=== PATIENT | female | born 1950 | race Caucasian/White ===

== ENCOUNTER 2017-08-10 22:27 | Emergency (ER) | payer BC, OTHER ==
[~2017-08-10] VITALS: Ht 165.1 cm; Wt 64.5 kg
[~2017-08-10 22:27] MED LIST: ALPH0.15 EACH EYE; AZOP1SUS EACH EYE; CALC500T42 PO; LEVO.025 PO; PROB1TAB PO; SERT-132 PO; SIMV40 PO; TAB-TAB PO
[2017-08-10 22:41] VITALS: BP 192/86; PULSE 111; RESP 20; TEMP 97.9; O2SAT 99
[2017-08-11] MEDS ORDERED: LEVO50TA4 PO (00:03)
[2017-08-11] MEDS ORDERED: SACC1CAP3 PO (00:03)
[2017-08-11] MEDS ORDERED: SIMV40TA PO (00:03)
[2017-08-11] MEDS ORDERED: CALC1TAB12 PO (00:03)
[2017-08-11] MEDS ORDERED: CURCPOW PO (00:06)
--- NOTE | 2017-08-11 00:06 | PD ---
HPI Chief Complaint: Nosebleed Time Seen by Provider: 23:59 Travel History International Travel<30 days: No Contact w/Intl Traveler<30days: No Traveled to known affect area: No History of Present Illness HPI 66-year-old female arrives with epistaxis from the left naris for about 2 hours. Symptoms resolved spontaneously just prior to the time of ER evaluation. She denies trauma. No diaphoresis tachycardia headache dizziness. No sore prior episodes. No anticoagulation. PFSH Past Medical History Cancer: No Cardiovascular Problems: No Endocrine: Yes Genitourinary: No Hepatitis: No Hiatal Hernia: No Immune Disorder: No Musculoskeletal: No Neurologic: No Psychiatric: No Reproductive: No Respiratory: No Thyroid Disease: Yes (HYPOTHYROID) Past Surgical History Abdominal Surgery: No Body Medical Devices: NONE Cardiac Surgery: No Ear Surgery: No Endocrine Surgery: No Eye Surgery: No Genitourinary Surgery: No Gynecologic Surgery: Yes (TL) Oral Surgery: No Thoracic Surgery: No Social History Tobacco Use: No Substance Use: No Allergies-Medications (Allergen,Severity, Reaction): Coded Allergies: No Known Allergies (Unverified Adverse Reaction, Unknown, 08/10/17) Reported Meds & Prescriptions Reported Meds & Active Scripts Active Reported Curcumin (Turmeric (Curcuma Longa) (Bulk) 95 % Pow 1 Applic PO DAILY Probiotic (Saccharomyces Boulardii) 250 Mg Cap 250 Mg PO DAILY Simvastatin 40 Mg Tab 40 Mg PO HS Calcium 500 +D (Calcium Carbonate-Cholecalciferol) 500-400 Mg-Unit Tab 1 Tab PO DAILY Levothyroxine (Levothyroxine Sodium) 50 Mcg Tab 50 Mcg PO DAILY Review of Systems Except as stated in HPI: all other systems reviewed are Neg General / Constitutional: No: Chills Physical Exam Narrative GENERAL: 56-year-old female well-nourished well-developed pleasant SKIN: Warm and dry. HEAD: Atraumatic. Normocephalic. EYES: Pupils equal and round. No scleral icterus. No injection or drainage. ENT: No nasal bleeding or discharge. Mucous membranes pink and moist. Minimal bleed in the left anterior nare NECK: Trachea midline. No JVD. CARDIOVASCULAR: Regular rate and rhythm. RESPIRATORY: No accessory muscle use. Clear to auscultation. Breath sounds equal bilaterally. GASTROINTESTINAL: Abdomen soft, non-tender, nondistended. Hepatic and splenic margins not palpable. MUSCULOSKELETAL: Extremities without clubbing, cyanosis, or edema. No obvious deformities. NEUROLOGICAL: Awake and alert. No obvious cranial nerve deficits. Motor grossly within normal limits. Five out of 5 muscle strength in the arms and legs. Normal speech. PSYCHIATRIC: Appropriate mood and affect; insight and judgment normal. Data Data Last Documented VS Vital Signs Date Time Temp Pulse Resp B/P (MAP) Pulse Ox O2 Delivery O2 Flow Rate FiO2 08/11/17 00:20 100 16 170/79 (109) 97 08/10/17 22:41 97.9 Vital signs reviewed Orders Orders Ed Discharge Order (08/11/17 00:06) MDM Medical Decision Making Medical Screen Exam Complete: Yes Emergency Medical Condition: Yes Medical Record Reviewed: Yes Differential Diagnosis Anterior epistaxis, posterior epistaxis, anemia Narrative Course Epistaxis resolved with the patient's if discharge home. At home management discussed. Patient verbalized understanding. Diagnosis Primary Impression: Epistaxis Referrals: Primary Care Physician 2 days Med/Other Pt SpecificInfo: No Change to Meds Disposition: 01 DISCHARGE HOME Condition: Stable Tristan Horta MD Aug 11, 2017 00:06
[2017-08-11 00:20] VITALS: BP 170/79
== END 2017-08-11 00:22 | disposition home or self-care (01) ==
LOC: PHED 22:27
DX: R04.0 Epistaxis (principal); E03.9 Hypothyroidism, unspecified
CPT/HCPCS: 99282